=== PATIENT | female | born 1955 | race Asian ===

== ENCOUNTER 2020-05-08 22:28 | Emergency (ER) | payer OTHER ==
[~2020-05-08] VITALS: Ht 154.9 cm; Wt 63.5 kg
[2020-05-08 22:38] VITALS: Ht 154.9 cm; Wt 63.5 kg
[2020-05-08 23:16] VITALS: BP 135/74
== END 2020-05-08 23:16 | disposition home or self-care (01) ==
LOC: ED 22:28
DX: B02.9 Zoster without complications (principal)